=== PATIENT | male | born 1950 | race Hispanic/Latino ===

== ENCOUNTER → 2022-09-14 | Outpatient (CLI) | payer OTHER ==
[~2022-09-14] MED LIST: AEC81 PO; ATOR-2 PO; CLOP75TA32 PO; ISOS60TA77 PO; METO-408 PO
== END | disposition home or self-care (01) ==
LOC: RAH 13:43 → EDUNIT# 14:30
PROVIDERS: ATTEND Orthopaedic Surgery Sports Medicine
DX: M17.12 Unilateral primary osteoarthritis, left knee (principal); M19.072 Primary osteoarthritis, left ankle and foot
CPT/HCPCS: 73700

== ENCOUNTER 2022-09-17 06:59 | Observation (INO) | payer OTHER ==
[2022-09-14 14:59] LABS: EOSINOPHILS % (AUTO) 4.4 % (0.0-8.0); HEMATOCRIT 47.3 % (42-54); LYMPHOCYTES % (AUTO) 29.8 % (21.0-51.0); MEAN CORPUSCULAR HEMOGLOBIN 29.3 pg (27.0-33.0); MEAN CORPUSCULAR VOLUME 88.7 fL (79-99); NEUTROPHILS % (AUTO) 55.2 % (40.0-77.0); PLATELET COUNT (AUTO) 182 K/uL (130-400); RED BLOOD CELL COUNT(AUTO) 5.33 MIL/uL (4.50-6.20); RED CELL DISTRIBUTION WIDTH 13.3 % (11.0-15.5)
[2022-09-14 15:15] LABS: CREATININE 1.1 mg/dL (0.5-1.5); POTASSIUM 4.8 mmol/L (3.5-5.1)
[2022-09-14 15:16] LABS: INR 1.04 (0.85-1.15); PROTHROMBIN TIME 11.3 SEC (9.6-11.6)
[2022-09-14 15:18] LABS: PARTIAL THROMBOPLASTIN TIME 29.3 SEC (26.3-35.5)
[2022-09-14 15:45] VITALS: BP 115/62
[~2022-09-17] VITALS: Ht 185.4 cm; Wt 99.1 kg
[2022-09-17] VITALS (23 sets, daily range): BP systolic 122–172; BP diastolic 52–90
[~2022-09-17 06:59] MED LIST changes: +CEFAZOLIN SODIUM 2 GM VIAL IVPB ONE; +VANCOMYCIN 1G VIAL TP ONE
[2022-09-17] MEDS ORDERED: CEFAZOLIN SODIUM 2 GM VIAL ONE (07:39)
[2022-09-17] MEDS ORDERED: LACTATED RINGERS 1000ML 1,000 ML IV ONE (07:39)
[2022-09-17] MEDS ORDERED: HYDROMORPHONE 1 MG INJ ONE ×2 (10:24→13:36)
[2022-09-17] MEDS ORDERED: FAMOTIDINE 20MG VIAL IV ONE (10:25)
[2022-09-17] MEDS ORDERED: LIDOCAINE PF 100MG/5ML (2%) SYRINGE 5ML ONE (10:32)
[2022-09-17] MEDS ORDERED: PROPOFOL 10 MG/ML 20ML VIAL IV ONE (10:33)
[2022-09-17] MEDS ORDERED: ROCURONIUM 10MG/1ML SYR 10 MG/ML ML ONE (10:33)
[2022-09-17] MEDS ORDERED: FENTANYL CITRATE PF 50 MCG/1 ML 5ML AMP IV ONE (10:33)
[2022-09-17] MEDS ORDERED: GLYCOPYRROLATE 1 MG/5 ML SYRINGE ONE (10:33)
[2022-09-17] MEDS ORDERED: TRANEXAMIC ACID 1000MG/10ML ONE (10:56)
[2022-09-17] MEDS ORDERED: VANCOMYCIN 1G/250ML KIT 250 ML IV ONE (10:56)
[2022-09-17] MEDS ORDERED: CEFAZOLIN SODIUM 2 GM VIAL IVPB ONE (11:09)
[2022-09-17] MEDS ORDERED: METOPROLOL TARTRATE 1 MG/ML 5ML VIAL IV ONE (11:24)
[2022-09-17] MEDS ORDERED: VANCOMYCIN 1G VIAL TP ONE (11:37)
[2022-09-17] MEDS ORDERED: ONDANSETRON 4MG INJ ONE (11:45)
[2022-09-17] MEDS ORDERED: NEOSTIGMINE 5MG/5ML SYR IV ONE (13:03)
[2022-09-17] MEDS ORDERED: MORPHINE 4 MG SYG IVP PRN (13:30)
[2022-09-17] MEDS ORDERED: KCL 20 MEQ ERTAB PO PRN (13:30)
[2022-09-17] MEDS ORDERED: TRANEXAMIC ACID 1000MG/10ML IV ONE (13:30)
[2022-09-17] MEDS ORDERED: POTASSIUM CHLORIDE 20MEQ/100ML 100 ML IV PRN (13:30)
[2022-09-17] MEDS ORDERED: POTASSIUM CHLORIDE 10% ELIXIR 20 MEQ/15 ML UDCUP PO PRN (13:30)
[2022-09-17] MEDS ORDERED: HYDROCODONE/ACETAMINOPHEN 5/325 MG TAB PO PRN (13:30)
[2022-09-17] MEDS ORDERED: ACETAMINOPHEN 500 MG TABLET PO SCH (13:30)
[2022-09-17] MEDS: 0.9%NACL 1000ML 1,000 ML IV SCH ×2 (13:30→23:30)
[2022-09-17] MEDS: ACETAMINOPHEN 1,000 MG/100 ML VIAL IV SCH ×2 (13:30→19:30)
[2022-09-17] MEDS ORDERED: ONDANSETRON 4MG INJ IVP PRN (13:30)
[2022-09-17] MEDS ORDERED: LIDOCAINE HCL-MPF 1% 2ML VIAL IV PRN (13:30)
[2022-09-17] MEDS ORDERED: IBUPROFEN 800MG + NS 250ML IV SCH (16:30)
[2022-09-17] MEDS: CEFAZOLIN SODIUM 1 GM VIAL IVP SCH (18:11)
[2022-09-17] MEDS: TRAMADOL HCL 50 MG TABLET PO SCH (18:11)
[2022-09-17] MEDS: FAMOTIDINE 20MG TAB PO SCH (20:41)
[2022-09-17] MEDS: ACETAMINOPHEN 500 MG TABLET PO SCH (20:41)
[2022-09-17] MEDS: HYDROCODONE/ACETAMINOPHEN 10/325 MG TAB PO PRN (20:42)
[2022-09-17] MEDS: IBUPROFEN 800MG + NS 250ML IV SCH (20:43)
[2022-09-18 00:04] VITALS: BP 166/94
[2022-09-18] MEDS: ACETAMINOPHEN 1,000 MG/100 ML VIAL IV SCH (01:30)
[2022-09-18] MEDS: CEFAZOLIN SODIUM 1 GM VIAL IVP SCH (03:20)
[2022-09-18] MEDS: HYDROCODONE/ACETAMINOPHEN 10/325 MG TAB PO PRN (03:23)
[2022-09-18 04:51] LABS: HEMATOCRIT 43.6 % (42-54); MEAN CORPUSCULAR HEMOGLOBIN 29.1 pg (27.0-33.0); MEAN CORPUSCULAR VOLUME 88.1 fL (79-99); RED BLOOD CELL COUNT(AUTO) 4.95 MIL/uL (4.50-6.20); RED CELL DISTRIBUTION WIDTH 13.3 % (11.0-15.5); WHITE BLOOD COUNT (AUTO) 15.3 K/uL (4.8-10.8)
[2022-09-18] MEDS: IBUPROFEN 800MG + NS 250ML IV SCH (05:04)
[2022-09-18 05:08] LABS: CREATININE 1.1 mg/dL (0.5-1.5); POTASSIUM 4.6 mmol/L (3.5-5.1)
[2022-09-18] MEDS: ACETAMINOPHEN 500 MG TABLET PO SCH ×2 (06:00→14:00)
[2022-09-18] MEDS: TRAMADOL HCL 50 MG TABLET PO SCH ×4 (06:59→16:55)
[2022-09-18 08:00] VITALS: BP 138/75
[2022-09-18] MEDS ORDERED: POLYETHYLENE GLYCOL 3350 17 GM POWD.PACK PO SCH (09:00)
[2022-09-18] MEDS: 0.9%NACL 1000ML 1,000 ML IV SCH (09:30)
[2022-09-18] MEDS: FAMOTIDINE 20MG TAB PO SCH (10:04)
[2022-09-18 11:42] VITALS: BP 139/71
[2022-09-18 16:00] VITALS: BP 137/77
[2022-09-18] MEDS ORDERED: CELECOXIB 200 MG CAP PO SCH (21:00)
[2022-09-20] MEDS ORDERED: BISACODYL 10 MG SUPP.RECT RC PRN (13:30)
== END 2022-09-18 16:45 | disposition home or self-care (01) ==
LOC: DAH 06:59 → DAHIP 07:00 → DAH 07:00 → 4CH 14:30
PROVIDERS: ADMIT Orthopaedic Surgery Sports Medicine; ATTEND Orthopaedic Surgery Sports Medicine
DX: M17.12 Unilateral primary osteoarthritis, left knee (principal); Z20.822 Contact with and (suspected) exposure to COVID-19; I10 Essential (primary) hypertension; E78.5 Hyperlipidemia, unspecified; Z79.899 Other long term (current) drug therapy
CPT/HCPCS: 20985; 80048 ×2; 85025; 85610; 85730; 87426; 36415 ×2; 93005; 87641; 27447; 96365; 96366 ×2; 96375; 73560; 97039 ×2; 96376; 85027; 97161; 97116 ×2; 97530; A6260; C1776 ×4; G0378 ×27; A4663; J7030; J7120; J3370 ×2; J3490 ×4; J3010; J0690 ×4; J1170 ×2; J2710; J2001; J2704; J2405; J1741 ×2; A6223; A4649 ×2; A4215; A4223; A4222; A4221